=== PATIENT | male | born 1980 | race Caucasian/White ===

== ENCOUNTER 2022-11-21 14:06 | Emergency (ER) | payer MEDICAID ==
[~2022-11-21] VITALS: Ht 175.3 cm; Wt 77.1 kg
[2022-11-21 14:28] VITALS: BP_SYST 132
--- NOTE | 2022-11-21 14:43 | NUR ---
ASSUMED PATIENT CARE PT AOX4 GCS 13 C/O LEFT CALF PAIN THAT STARTED SUNDAY PATIENT STATES HE KICK AND HIT WALL. NOTED BRUSING AND SWELLING, WARM TO TOUCH.
--- NOTE | 2022-11-21 16:58 | NUR ---
Patient given written and verbal discharge instructions and verbalizes understanding. ER MD discussed with patient the results and treatment provided. Patient in stable condition. ID arm band removed. Patient educated on pain management and to follow up with PMD. Opportunity for questions provided and answered. Medication side effect fact sheet provided.
== END 2022-11-21 16:58 | disposition home or self-care (01) ==
LOC: SED 14:06
DX: S80.12XA Contusion of left lower leg, initial encounter (principal); Z79.899 Other long term (current) drug therapy; W50.1XXA Accidental kick by another person, initial encounter; Y93.89 Activity, other specified; Y92.89 Other specified places as the place of occurrence of the external cause; Y99.8 Other external cause status
CPT/HCPCS: 93971; 99284

== ENCOUNTER 2024-04-06 17:34 | Emergency (ER) | payer MEDICAID ==
[~2024-04-06] VITALS: Ht 175.3 cm; Wt 74.8 kg
[2024-04-06 17:35] VITALS: BP_SYST 130; PULSE 80; RESP 18; TEMP 97.2; O2SAT 96
[2024-04-06 18:44] LABS: BILIRUBIN,URINE NEGATIVE (NEGATIVE); BLOOD, URINE NEGATIVE (NEGATIVE); COLOR,URINE YELLOW (YELLOW); GLUCOSE,URINE NEGATIVE (NEGATIVE); KETONES,URINE NEGATIVE (NEGATIVE); LEUKOCYTE ESTERASE ,URINE 1+ (NEGATIVE); NITRITE, URINE NEGATIVE (NEGATIVE); PROTEIN URINE NEGATIVE (NEGATIVE); UROBILINOGEN,URINE 0.2 (0.2-1.0)
[2024-04-06 18:46] LABS: CLARITY/URINE HAZY (CLEAR)
[2024-04-06 19:41] LABS: BACTERIA,URINE FEW /HPF (None Seen); RBC,URINE 0-3 /HPF (0-3); WBC,URINE 80-100 /HPF (0-3)
[2024-04-06 19:42] LABS: MUCUS,URINE None Seen /LPF (None Seen)
[2024-04-06] MEDS ORDERED: DOXY100T2 PO (19:59)
[2024-04-06 20:07] VITALS: BP_SYST 130; PULSE 80; RESP 18; TEMP 97.2; O2SAT 96
[2024-04-06] MEDS: AZITHROMYCIN 250 MG TABLET PO ONE (20:07)
== END 2024-04-06 20:07 | disposition home or self-care (01) ==
LOC: SED 17:34
DX: N34.2 Other urethritis (principal); Z88.0 Allergy status to penicillin
CPT/HCPCS: 99283; 81001; 87086; 36415; 87491; Q0144; 81000; 81015